=== PATIENT | female | born 1980 | race Caucasian/White ===

== ENCOUNTER 2017-01-30 06:28 | Inpatient (IN) | payer OTHER ==
[2017-01-30] VITALS (58 sets, daily range): BP systolic 106–130; BP diastolic 45–82; PULSE 58–87; RESP 18; TEMP 97.7–98.2; O2SAT 100
[~2017-01-30] VITALS: Ht 165.1 cm; Wt 113.4 kg
[2017-01-30] MEDS ORDERED: LACTATED RINGER'S 1000 ML INJ 1,000 ML IV PRN (06:42)
[2017-01-30] MEDS ORDERED: LIDOCAINE HCL 1% 50 ML VIAL I-DERMAL PRN (06:45)
[2017-01-30] MEDS ORDERED: PENICILLIN G POTASSIUM INJ 5,000,000 UNITS in SODIUM CHLORIDE 0.9% INJ 100 ML IV ONE (06:45)
[2017-01-30] MEDS ORDERED: OXYTOCIN 30 UNITS-500ML PREMIX 500 ML IV ONE (06:45)
[2017-01-30] MEDS ORDERED: SODIUM CHLORID 0.9% 500 ML INJ 500 ML IV PRN (06:45)
[2017-01-30] MEDS ORDERED: CITRIC ACID-SODIUM CITRATE LIQ 30 ML UDC PO SCH (06:45)
[2017-01-30] MEDS ORDERED: MINERAL OIL 10 ML VIAL TOPICAL PRN (06:45)
[2017-01-30] MEDS ORDERED: OXYTOCIN 30 UNITS-500ML PREMIX 500 ML IV SCH (06:45)
[2017-01-30] MEDS ORDERED: LIDOCAINE HCL 1% 50 ML VIAL INFIL PRN (06:45)
[2017-01-30] MEDS ORDERED: SODIUM CHLOR 0.9% 1000 ML INJ 1,000 ML IV PRN (07:02)
--- NOTE | 2017-01-30 07:28 | HHI.HP ---
HPI Chief Complaint Induction at 39 weeks Date Seen: January 30, 2017 Time Seen: 07:20 Travel History International Travel<30 Days: No Contact w/Intl Traveler<30Days: No Known Affected Area: No History of Present Illness HPI 36 yo Para: 4 : 6 History Past Medical History Medical History: Denies Significant Hx Obstetric History Obstetric History x4 Past Surgical History Narrative Surgical multiple orthopedic surgery and Appendix Family History Family History: Negative Social History Alcohol Use: No Tobacco Use: No Substance Abuse: No Allergies-Medications (Allergen,Severity, Reaction): Coded Allergies: No Known Allergies (Unverified , 01/30/17) Review of Systems Except as stated in HPI: all other systems reviewed are Neg Physical Exam Vital Signs Date Time Temp Pulse Resp B/P Pulse Ox O2 Delivery O2 Flow Rate FiO2 01/30/17 06:54 98.2 18 01/30/17 06:46 87 122/45 Narrative GENERAL: Well-nourished, well-developed patient. SKIN: Warm and dry. HEAD: Normocephalic and atraumatic. EYES: No scleral icterus. No injection or drainage. ENT: No nasal drainage noted. Mucous membranes pink. Airway patent. NECK: Supple, trachea midline. No JVD. CARDIOVASCULAR: Regular rate and rhythm without murmurs, gallops, or rubs. RESPIRATORY: Breath sounds equal bilaterally. No accessory muscle use. BREASTS: Bilateral exam showed no masses , no retractions, no nipple discharge. ABDOMEN/GI: Abdomen soft, non-tender, bowel sounds present, no rebound, no guarding Gravid to [-] weeks size Fundal Height: [-] GENITOURINARY: External Genitalia: intact and normal in appearance BUS glands: [-] Cervix: [-] Dilatation: [-] Effacement: [-] Station: [-] Presentation: [-] Membranes: [intact or ruptured] Uterine Contractions: [-] FHT's: Category: [-] Baseline: [-] Reactive: [-] Variability: [-] Decels: [-] EXTREMITIES: No cyanosis or edema. BACK: Nontender without obvious deformity. No CVA tenderness. NEUROLOGICAL: Awake and alert. Motor and sensory grossly within normal limits. Five out of 5 muscle strength in all muscle groups. Normal speech. Data Data Vital Signs Reviewed: No Orders Admit To Inpatient (5/3/17 ) Code Status (01/30/17 06:42) Vital Signs (Adult) .Per protocol (01/30/17 06:42) Heart (01/30/17 06:42) Amnioinfusion (01/30/17 06:42) Urinary Catheter Management .ONCE (01/30/17 06:42) Lactated Ringer's 1000 Ml Inj (Lr 1000 M (01/30/17 06:42) Lactated Ringer's 1000 Ml Inj (Lr 1000 M (01/30/17 06:42) Sodium Chlorid 0.9% 500 Ml Inj (Ns 500 M (01/30/17 06:45) Sodium Chlor 0.9% 1000 Ml Inj (Ns 1000 M (01/30/17 07:02) Lidocaine 1% Inj (50 Ml) (Xylocaine 1% I (01/30/17 06:45) Citric Acid-Sodium Citrate Liq (Bicitra (01/30/17 06:45) Fentanyl Inj (Fentanyl Inj) (01/30/17 06:45) Fentanyl Inj (Fentanyl Inj) (01/30/17 06:45) Penicillin G Potassium Inj (Pfizerpen-G (01/30/17 06:45) Penicillin G Potassium Inj (Pfizerpen-G (01/30/17 11:00) Complete Blood Count With Diff (01/30/17 06:42) Hold Clot (01/30/17 06:42) Abo/Rh Blood Type (01/30/17 06:42) Urinalysis - C+S If Indicated (01/30/17 06:42) Resp Oxygen Non Rebreathe Mask (01/30/17 ) ^ Epidural / Intrathecal Infus (01/30/17 06:42) Oxytocin 30 Units-500ml Premix (Pitocin (01/30/17 06:45) Lidocaine 1% Inj (50 Ml) (Xylocaine 1% I (01/30/17 06:45) Light Mineral Oil (Muri-Lube Oil) (01/30/17 06:45) Inpatient Certification (01/30/17 ) Specimen To Be Collected PRN (01/30/17 06:42) ^ Non Stress Test (01/30/17 06:42) Response To Medication .Post New Med Administration, Reaction (01/30/17 06:42) ^ Discontinue Medication (01/30/17 06:42) Oxytocin 30 Units-500ml Premix (Pitocin (01/30/17 06:45) Assessment/Plan Problem List: (1) 39 weeks gestation of Discharge Planning doing well Richard Zamora MD January 30, 2017 07:28
[2017-01-30] MEDS ORDERED: PREN29TA PO (07:37)
[2017-01-30] MEDS ORDERED: ADDE20 PO (07:38)
--- NOTE | 2017-01-30 07:49 | HHI.DCPOC ---
Discharge Care Plan Diagnosis: (1) 39 weeks gestation of Report Symptoms to Your Doctor -Temperate above 100.5 degrees -Redness, of incision or excessive or foul smelling drainage -Unusual pain or calf pain -Increased vaginal bleeding -Painful or difficulty urinating -Feelings of extreme sadness or anxiety after 2 weeks Goals to Promote Your Health * To prevent worsening of your condition and complications * To maintain your health at the optimal level Directions to Meet Your Goals Take your medications as prescribed Follow your dietary instruction Follow activity as directed Ensure plenty of rest for recovery Drink fluids for hydration Keep your appointments as scheduled Take your immunizations and boosters as scheduled If your symptoms worsen call your PCP, if no PCP go to Urgent Care Center or Emergency Room Smoking is Dangerous to Your Health. Avoid second hand smoke Call the 24-hour crisis hotline for domestic abuse at Richard Zamora MD January 30, 2017 07:49
[2017-01-30 07:57] LABS: AUTOMATED NEUTROPHIL # 7.2 TH/MM3 (1.8-7.7); BASOPHIL % 0.2 % (0.0-2.0); EOSINOPHIL # 0.1 TH/MM3 (0-0.4); EOSINOPHIL % 1.3 % (0.0-4.0); HEMATOCRIT 32.4 % (35.0-46.0); HEMO FLAGS DIFF FINAL; LYMPH % 21.7 % (9.0-44.0); LYMPHOCYTE # 2.2 TH/MM3 (1.0-4.8); MEAN CELL VOLUME 77.4 FL (80.0-100.0); MEAN CORPUSCULAR HEMOGLOBIN 26.1 PG (27.0-34.0); MEAN CORPUSCULAR HGB CONC 33.8 % (32.0-36.0); MONO % 6.6 % (0.0-8.0); NEUT % 70.2 % (16.0-70.0); PLATELET COUNT 185 TH/MM3 (150-450); RED BLOOD COUNT 4.19 MIL/MM3 (4.00-5.30); RED CELL DISTRIBUTION WIDTH 15.7 % (11.6-17.2); WHITE BLOOD COUNT 10.2 TH/MM3 (4.0-11.0)
[2017-01-30 08:05] LABS: BACTERIA, URINE MANY /hpf; BLOOD, URINE NEG (NEG); COMMENT (UR) CULTURE INDICATED; CULTURE IF INDICATED CULTURE INDICATED; GLUCOSE,URINE NEG (NEG); KETONE, URINE NEG (NEG); MUCUS URINE FEW /lpf (OCC); NITRITE,URINE NEG (NEG); SQUAMOUS EPITHELIAL CELL URINE 8 /hpf (0-5); URINE COLOR YELLOW (YELLW/STRAW)
[2017-01-30] MEDS: LACTATED RINGER'S 1000 ML INJ 1,000 ML IV SCH ×3 (08:59→22:42)
[2017-01-30] MEDS: PENICILLIN G POTASSIUM INJ 2,500,000 UNITS in SODIUM CHLORIDE 0.9% INJ 100 ML IV SCH ×4 (11:14→23:45)
[2017-01-30] MEDS ORDERED: fentaNYL 2MCG-BUPIV 0.125% INJ 100 ML ONE (13:34)
[2017-01-30] MEDS ORDERED: ePHEDrine/NS 25 MG/5 ML SYR ONE (13:34)
[2017-01-30] MEDS ORDERED: fentaNYL 2MCG-BUPIV 0.125% 100 ML EPIDURAL SCH (16:45)
[2017-01-30] MEDS ORDERED: DO NOT ADMINISTER ANTICOAGULANTS PRN (16:45)
[2017-01-30] MEDS ORDERED: NO SYSTEM NARCOTICS PRN (16:45)
[2017-01-30] MEDS ORDERED: ePHEDrine/NS 25 MG/5 ML SYR IV PRN (16:45)
--- NOTE | 2017-01-30 17:44 | PD.LABORPN ---
Subjective Subjective doing well Objective Vital Signs Vital Signs Date Time Temp Pulse Resp B/P Pulse Ox O2 Delivery O2 Flow Rate FiO2 01/30/17 17:31 71 122/50 01/30/17 17:01 63 108/50 01/30/17 16:31 64 109/62 01/30/17 16:15 97.8 18 01/30/17 16:14 18 01/30/17 16:10 65 01/30/17 16:05 78 01/30/17 16:01 76 112/76 01/30/17 16:00 66 01/30/17 15:40 71 01/30/17 15:35 68 01/30/17 15:31 74 01/30/17 15:30 78 01/30/17 15:10 65 01/30/17 15:05 76 01/30/17 15:01 71 119/49 01/30/17 15:00 65 01/30/17 14:50 68 01/30/17 14:45 66 01/30/17 14:40 73 01/30/17 14:35 67 01/30/17 14:31 78 120/50 01/30/17 14:30 72 100 01/30/17 14:29 70 113/49 01/30/17 14:25 67 01/30/17 14:25 100 01/30/17 14:20 75 01/30/17 14:20 100 01/30/17 14:15 75 01/30/17 14:15 100 01/30/17 14:10 100 01/30/17 14:10 70 01/30/17 14:05 68 01/30/17 14:05 100 01/30/17 14:01 69 127/76 01/30/17 13:32 62 114/62 01/30/17 13:02 61 110/82 01/30/17 12:37 98.0 18 01/30/17 12:32 70 129/61 01/30/17 11:32 65 114/57 01/30/17 11:01 72 112/74 01/30/17 10:45 97.9 18 01/30/17 10:31 69 109/66 01/30/17 10:26 62 121/58 Objective Pelvic Exam: Cervix: [-] Dilatation: 5 Effacement: Station: -2 Presentation: [-] Membranes: ruptured Uterine Contractions: [-] FHT's: Category: 1 Baseline: [-] Reactive: [-] Variability: [-] Decels: [-] Assessment/Plan Problem List: (1) 39 weeks gestation of Richard Zamora MD January 30, 2017 17:44
[2017-01-31] VITALS (16 sets, daily range): BP systolic 95–114; BP diastolic 18–60; PULSE 57–97; RESP 18–20; TEMP 98.6–98.9
--- NOTE | 2017-01-31 04:05 | PD.OB.DELI ---
Delivery Date: January 31, 2017 Anesthesia: Epidural Episiotomy: None Vaginal Delivery: Normal Presentation: Occiput anterior Nuchal Cord: x1 (cut at perineum) Delayed cord clamping (45 sec): Yes : Female One Minute : 9 Five Minute : 9 Weight: 3225gms, 7#2oz Placenta: Spontaneous delivery, Intact Laceration: 1 deg Repair: Chromic interrupted Wendy Terrazas MD January 31, 2017 04:05
[2017-01-31] MEDS ORDERED: ZOLPIDEM TARTRATE 5 MG TAB PO PRN (04:15)
[2017-01-31] MEDS ORDERED: oxyCODONE/ACETAMINOPHEN 5 MG/325 MG TAB PO PRN (04:15)
[2017-01-31] MEDS ORDERED: ALUMINUM/MAGNESIUM/SIMETH 30 ML CUP PO PRN (04:15)
[2017-01-31] MEDS ORDERED: DOCUSATE SODIUM 50 MG/SENNA 8.6 MG TAB PO PRN (04:15)
[2017-01-31] MEDS ORDERED: ACETAMINOPHEN 325 MG TAB PO PRN (04:15)
[2017-01-31] MEDS ORDERED: WITCH HAZEL 50%/GLYCERIN 12.5% 40 PAD JAR TOPICAL PRN (04:15)
[2017-01-31] MEDS ORDERED: BENZOCAINE 20% TOPICAL SPRAY 60 ML CAN TOPICAL PRN (04:15)
[2017-01-31] MEDS ORDERED: ONDANSETRON ODT 4 MG TAB PO PRN (04:15)
[2017-01-31] MEDS ORDERED: SODIUM CHLORIDE 0.9% FLUSH 10 ML FLUSH IV FLUSH PRN (04:15)
[2017-01-31] MEDS: oxyCODONE/ACETAMINOPHEN 5 MG/325 MG TAB PO PRN ×2 (06:53→14:01)
[2017-01-31] MEDS ORDERED: SODIUM CHLORIDE 0.9% FLUSH 10 ML FLUSH IV FLUSH SCH (09:00)
[2017-01-31] MEDS: IBUPROFEN 600 MG TAB PO PRN (11:06)
[2017-01-31] MEDS ORDERED: DIPHTH/TETANUS/ACEL PERTUSSIS (BOOSTER) 0.5 ML VIAL/PFS IM ONE (16:00)
[2017-01-31] MEDS ORDERED: MEASLES, MUMPS, RUBELLA VACCINE 0.5 ML VIAL SQ ONE (16:00)
[2017-02-01] MEDS: oxyCODONE/ACETAMINOPHEN 5 MG/325 MG TAB PO PRN (00:14)
[2017-02-01] MEDS: IBUPROFEN 600 MG TAB PO PRN (08:10)
--- NOTE | 2017-02-01 08:15 | HHI.OB ---
Subjective Post Day: 1 Remarks doing well pp. Has some pain but still wants to go home today. Waiting on determination of Objective Vitals/I&O Vital Signs Date Time Temp Pulse Resp B/P Pulse Ox O2 Delivery O2 Flow Rate FiO2 01/31/17 09:30 67 100/60 Objective Remarks GENERAL: Well-nourished, well-developed patient. . ABDOMEN/GI: Abdomen soft, non-tender. Fundus: Firm, non-tender at umbilicus. GENITOURINARY: Light to moderate bleeding. EXTREMITIES: No cyanosis or edema, non-tender, without signs of DVT. Medications and IVs Current Medications Medications (Trade) Dose Ordered Sig/Malcolm Route Start Time Stop Time Status Last Admin (NS Flush) 2 ml BID IV FLUSH 01/31/17 09:00 (NS Flush) 2 ml UNSCH PRN IV FLUSH 01/31/17 04:15 (Tylenol) 650 mg Q4H PRN PO 01/31/17 04:15 (Motrin) 600 mg Q6H PRN PO 01/31/17 04:15 02/01/17 08:10 (Percocet 5-325 Mg) 1 tab Q4H PRN PO 01/31/17 04:15 02/01/17 00:14 (Percocet 5-325 Mg) 2 tab Q4H PRN PO 01/31/17 04:15 (Americaine 20% Top Spr) 1 spray Q4H PRN TOPICAL 01/31/17 04:15 01/31/17 14:00 (Tucks Pads) 1 applic QID PRN TOPICAL 01/31/17 04:15 01/31/17 14:00 (Suzy-Colace) 2 tab Q12H PRN PO 01/31/17 04:15 (Ambien) 5 mg HS PRN PO 01/31/17 04:15 (Mag-Al Plus Susp Liq) 15 ml Q8H PRN PO 01/31/17 04:15 (Zofran Odt) 4 mg Q6H PRN PO 01/31/17 04:15 Assessment/Plan Problem List: (1) 39 weeks gestation of Discharge Planning doing well Richard Zamora MD February 01, 2017 08:15
--- NOTE | 2017-02-01 08:19 | HHI.DS ---
Admission Date January 30, 2017 at 06:28 Discharge Date: February 01, 2017 Admitting Diagnosis Diagnosis: (1) 39 weeks gestation of (2) Spontaneous vaginal delivery Delivery Date: January 31, 2017 Vaginal Delivery: Normal, Spontaneous Infant: Female Brief History 36 yo Hospital Course doing well, dc home 5/5/or 5/6 Pt Condition on Discharge: Good Discharge Disposition: Discharge Home Discharge Instructions Diet Instructions: As Tolerated, No Restrictions Activities You Can Perform: Pelvic Rest Activities to Avoid: Driving for 24 hrs Follow up Referrals: PROJECT PRODUCT MANAGER - 2 Weeks @ [facility] with Richard Zamora MD, John William C. MD February 01, 2017 08:18
[2017-02-01] MEDS ORDERED: OXYC1TAB63 PO (08:20)
[2017-02-01 09:03] VITALS: RESP 14
== END 2017-02-01 13:49 | disposition home or self-care (01) | DRG 775 ==
LOC: H2EB 06:28 → H1EA 01-31 05:41
PROVIDERS: ADMIT Obstetrics & Gynecology; ATTEND Obstetrics & Gynecology
PROC: 10E0XZZ Delivery of Products of Conception, External Approach (ICD-10-PCS; principal; 2017-01-30)
PROC: 0HQ9XZZ Repair Perineum Skin, External Approach (ICD-10-PCS; 2017-01-30)
DX: O69.81X0 Labor and delivery complicated by cord around neck, without compression, not applicable or unspecified (principal); O70.0 First degree perineal laceration during delivery; Z37.0 Single live birth; Z3A.39 39 weeks gestation of pregnancy
CPT/HCPCS: 81001; 85025; 86900; 86901; 87086; 90715; J2540; J2590; J7120